=== PATIENT | female | born 1950 | race Caucasian/White ===

== ENCOUNTER 2016-06-23 09:30 | Emergency (ER) | payer MEDICARE, MEDICAID ==
[~2016-06-23] VITALS: Ht 160 cm; Wt 54.4 kg
[2016-06-23] MEDS ORDERED: LORA-258 PO (09:58)
[2016-06-23] MEDS ORDERED: CALC-555 PO (09:58)
[2016-06-23] MEDS ORDERED: LAMO25TA PO (09:58)
[2016-06-23] MEDS ORDERED: DICY10CA13 PO (09:58)
[2016-06-23] MEDS ORDERED: BACL10TA PO (09:58)
[2016-06-23] MEDS ORDERED: LINZESS PO (09:58)
[2016-06-23] MEDS ORDERED: PROC10TA29 PO (09:58)
[2016-06-23] MEDS ORDERED: CLON0.5T PO (09:58)
[2016-06-23] MEDS ORDERED: HYDR8TAB2 PO (09:58)
[2016-06-23] MEDS ORDERED: LAMO25TA2 PO (09:58)
[2016-06-23] MEDS ORDERED: HYDROMORPHONE 1 MG/1 ML DISP.SYRIN IM ONE ×2 (10:00→11:45)
[2016-06-23] MEDS ORDERED: diphenhydrAMINE 50 MG/1 ML VIAL IM ONE (10:00)
[2016-06-23] MEDS ORDERED: MIRT15TA7 PO (10:04)
--- NOTE | 2016-06-23 10:06 | NUR ---
meds administered, labs drawn, pt positioned for comfort, pt awaiting for venous dopplers to be performed.
[2016-06-23] MEDS ORDERED: HYDROMORPHONE 1 MG/1 ML DISP.SYRIN ONE (10:07)
[2016-06-23] MEDS ORDERED: diphenhydrAMINE 50 MG/1 ML VIAL ONE (10:07)
[2016-06-23 10:27] LABS: BASOPHILS % (AUTO) 0.7 % (0.0-2.0); EOSINOPHILS # (AUTO) 0.6 K/uL (0.0-0.7); EOSINOPHILS % (AUTO) 9.4 % (0.0-7.0); HEMATOCRIT 36.8 % (31.2-41.9); HEMOGLOBIN 12.2 g/dL (10.9-14.3); LYMPHOCYTES % (AUTO) 16.2 % (20.5-51.5); MEAN CORPUSCULAR HEMOGLOBIN 30.5 uug (24.7-32.8); MEAN CORPUSCULAR HGB CONC 33 g/dL (32.3-35.6); MEAN CORPUSCULAR VOLUME 91.7 fL (75.5-95.3); MONOCYTES # (AUTO) 0.6 K/uL (2.0-10.0); MONOCYTES % (AUTO) 9.7 % (0.0-11.0); NEUTROPHILS # (AUTO) 4.2 K/uL (1.8-8.9); PLATELET COUNT (AUTO) 321 K/uL (179-408); RED BLOOD CELL COUNT(AUTO) 4.01 MIL/uL (3.63-4.92); RED CELL DISTRIBUTION WIDTH 12.6 % (12.3-17.7); WHITE BLOOD COUNT (AUTO) 6.4 K/uL (3.8-11.8)
[2016-06-23 10:35] LABS: ALBUMIN 3.3 g/dL (3.4-5.0); BILIRUBIN,DIRECT 0.1 mg/dL (0.0-0.2); BILIRUBIN,TOTAL 0.4 mg/dL (0.2-1.0); CALCIUM 8.9 mg/dL (8.5-10.1); CREATININE 0.6 mg/dL (0.6-1.3); TOTAL PROTEIN, SERUM 6.7 g/dL (6.4-8.2)
[2016-06-23 10:54] LABS: BAND % (MANUAL) 2 % (0-10); BASOPHILS % (MANUAL) 1 % (0-2); EOSINOPHILS % (MANUAL) 10 % (0-8); LYMPHOCYTES % (MANUAL) 18 % (20-40); MONOCYTES % (MANUAL) 7 % (2-10); NEUTROPHILS % (MANUAL) 62 % (42-75)
[2016-06-23 10:57] LABS: PLATELET ESTIMATE ADEQUATE
[2016-06-23] MEDS ORDERED: HYDROMORPHONE 2 MG/1 ML DISP.SYRIN ONE (11:55)
[2016-06-23] MEDS ORDERED: METH2.5T PO (11:59)
[2016-06-23] MEDS ORDERED: FENT1PAT TP (11:59)
[2016-06-23] MEDS ORDERED: TOFA5TAB PO (11:59)
--- NOTE | 2016-06-23 12:43 | NUR ---
pt resting awiting for friend for ride.
[2016-06-23 13:24] VITALS: BP 102/62
== END 2016-06-23 12:55 | disposition home or self-care (01) ==
LOC: ER 09:30
DX: M06.841 Other specified rheumatoid arthritis, right hand (principal); M06.872 Other specified rheumatoid arthritis, left ankle and foot; F32.9 Major depressive disorder, single episode, unspecified; F41.9 Anxiety disorder, unspecified; Z88.6 Allergy status to analgesic agent
CPT/HCPCS: 36415; 85025; 85730; A4663; J1170; J1200